=== PATIENT | female | born 1935 | race Caucasian/White ===

== ENCOUNTER 2020-10-04 16:29 | Inpatient (IN) | payer OTHER, MEDICARE ==
[~2020-10-04] VITALS: Ht 162.6 cm; Wt 80.4 kg
[~2020-10-04 16:29] MED LIST: AMLODIPINE BESY10 MG PO; DESYREL50 MG PO; LEVOTHYROXINE88 MC1 PO; NITROGLYCERIN0.4 MG SUBLING; OMEPRAZOLE 20 M20 M1 PO; OXYBUTYNIN 5 MG5 M2 PO; PRINZIDE 20-121 EACH PO; SIMVASTATIN20 MG PO
[2020-10-04 16:45] VITALS: BP 136/83
[2020-10-04 18:57] LABS: ABSOLUTE NEUTROPHILS 5.8 thou/uL (1.4-8.2); BASOPHILS 0.2 % (0.0-2.0); EOSINOPHILS 0.3 % (0.0-3.0); HEMATOCRIT 36.2 % (37.0-47.0); HEMOGLOBIN 12.5 gm/dL (12.0-15.0); LYMPHOCYTES 9.9 % (24.0-44.0); MCH 32.3 pg (26.0-34.0); MCHC 34.5 g/dL (28.0-37.0); MCV 93.8 fL (80.0-100.0); MONOCYTES 7.7 % (1.0-8.0); PLATELET COUNT 261 thou/uL (150-400); POLYS 81.9 % (36.0-66.0); RBC 3.86 mil/uL (4.20-5.00); RDW 12.8 % (10.5-14.5); WBC 7.1 thou/uL (4.0-11.0)
[2020-10-04 19:08] LABS: CALCIUM 9.7 mg/dL (8.5-10.1); CREATININE 1.2 mg/dL (0.6-1.0); POTASSIUM 3.7 mmol/L (3.5-5.1)
[2020-10-04 19:15] LABS: ALBUMIN 3.3 g/dL (3.4-5.0); DIRECT BILIRUBIN 0.2 mg/dL (<0.1-0.2); TOTAL BILIRUBIN 0.8 mg/dL (0.2-1.0); TOTAL PROTEIN 7.5 g/dL (6.4-8.2)
[2020-10-04 20:37] LABS: URINE BILIRUBIN NEGATIVE (Negative); URINE BLOOD NEGATIVE (Negative); URINE CLARITY CLEAR; URINE COLOR YELLOW; URINE GLUCOSE-RANDOM* NEGATIVE (Negative); URINE KETONES TRACE (Negative); URINE LEUKOCYTES-REFLEX 1+ (Negative); URINE NITRITE-REFLEX NEGATIVE (Negative); URINE PROTEIN (DIPSTICK) NEGATIVE (Negative); URINE UROBILINOGEN 0.2 E.U./dl (0.2-1.0)
[2020-10-04 20:45] LABS: SQUAMOUS 0-3 Few /LPF (0-3)
[2020-10-04 20:46] LABS: CASTS None Seen /LPF (None Seen); CRYSTALS None Seen /LPF (None Seen); URINE RBC None Seen /HPF (0-2); URINE WBC-REFLEX 6-15 Few /HPF (0-5)
[2020-10-05 01:11] VITALS: BP 139/62
[2020-10-05 02:25] VITALS: BP 137/100
[2020-10-05 02:27] VITALS: BP 139/62
--- NOTE | 2020-10-05 05:36 | NUR ---
PT ARRIVED FROM ER VIA CART, PLACED IN ROOM 352. ADMISSION ASSESSMENTS COMPLETED. PT ON ROOM AIR WITH O2 SAT 94% UPON ARRIVAL. DENIED ANY SOA. O2 USED IN ER REPORTEDLY FOR COMFORT ONLY. PT REPORTED POSITIVE FOR COVID APPROXIMATELY 10-11 DAYS AGO. THIS AM, PT PCR IS POSITIVE FOR COVID WELL. CONTINUE TO MONITOR.
[2020-10-05 07:18] VITALS: BP 140/72
[2020-10-05 10:25] LABS: CALCIUM 9.8 mg/dL (8.5-10.1); CREATININE 0.9 mg/dL (0.6-1.0); POTASSIUM 3.8 mmol/L (3.5-5.1)
[2020-10-05] MEDS ORDERED: PEPCID20 MG PO (12:33)
[2020-10-05] MEDS ORDERED: ZINC SULFATE 2220 MG PO (12:33)
[2020-10-05] MEDS ORDERED: LEVOFLOXACIN750 MG PO (12:33)
[2020-10-05] MEDS ORDERED: MEDROL DOSPAK21 TA1 PO (12:33)
[2020-10-05] MEDS ORDERED: TRAZODONE HCL50 MG PO (12:33)
[2020-10-05] MEDS ORDERED: LISINOPRIL20 MG PO (12:33)
[2020-10-05] MEDS ORDERED: CLONIDINE HCL0.1 MG PO (12:35)
--- NOTE | 2020-10-05 14:27 | NUR ---
INITIAL ASSESSMENT/DISCHARGE NOTE: AXEL reviewed chart and spoke with nursing and attending physician. Pt was admitted from home due to pneumonia. Pt placed in Enhanced Isolation due to COVID-19. Pt is afebrile and not requiring O2. Pt is on IV abx and IV steroids. AXEL spoke with pt's dtr, Vanessa, via phone. Vanessa states that she will be coming to pickle solution maker pt today and taking her home. AXEL explained that discharge orders have not been written. Vanessa requesting to speak with attending physician. AXEL provided Vanessa's contact info to attending physician. Pt to discharge home this afternoon. Vanessa will pickle solution maker pt between [id number] today. AXEL updated pt's nurse. Pt lives at home with Vanessa, who is a RN. Pt's dtr, Chika, is an RN at [employer] [employer] [employer]. AXEL followed with Vanessa to confirm discharge planned. No SW needs identified at this time, but is available to assist should needs arise.
[2020-10-05 15:03] VITALS: BP 108/51
[2020-10-05 15:38] VITALS: BP 108/51
--- NOTE | 2020-10-06 09:15 | HC ---
[facility] [place] [address] CONSULTATION Name: MAURICE GUILLEN Room #: 352-P [facility] IN M.R.#: [id number] Admission: 10/04/20 Attend Phys: August Padron MD Discharge: 10/05/20 Date of : 31 Report #: [id number] THIS REPORT FOR: cc: Adeline Valdez MD, Douglas B. MD Barry,Jerry Nevarez MD ~ DATE OF SERVICE: 10/05/2020 INFECTIOUS DISEASE CONSULTATION ATTENDING PHYSICIAN: Dr. Padron. REASON FOR EVALUATION: COVID-19 infection. HISTORY OF PRESENT ILLNESS: Chart reviewed, patient examined. This is an 84-year-old woman with fairly extensive medical history, has known hypertension, hypothyroidism, who is generally independent. She apparently was tested positive for COVID-19 approximately 10 days prior to the admission yesterday. She had not been on therapy. She noted some increased dyspnea with a nonproductive cough and fatigue, although at present, she denies those. She is maintained on supplemental ambient air. On questioning, denies any particular pulmonary or gastrointestinal related complaints that she just wants to go home. As per the evaluation, initially chest x-ray was performed, which showed moderate bilateral pulmonary infiltrates. She was found to have hyponatremia with a sodium of 123, repeat is up to 127. Lactic acid 1.0. Procalcitonin less than 0.05. Urinalysis did show 6-15 white cells. Influenza antigen was negative. Sed rate was noted to be elevated at 104. Blood cultures are sterile thus far. She was initiated on empiric therapy with azithromycin, ceftriaxone and has received some methylprednisolone as well. ALLERGIES: None known. MEDICATIONS: Currently include hydrochlorothiazide, lisinopril, amlodipine, atorvastatin, azithromycin, ascorbic acid, famotidine, levothyroxine, methylprednisolone, zinc sulfate, trazodone, enoxaparin, and ceftriaxone. PAST MEDICAL HISTORY: Includes hypertension, hypothyroidism, arthritis, reflux, has had esophageal strictures with dilatation. SOCIAL HISTORY: Former smoker, occasional ethanol. Actually 1 daily. No illicit drug use. FAMILY HISTORY: Noncontributory. REVIEW OF SYSTEMS: Otherwise, unremarkable 10-point review of systems. [address] [address] CONSULTATION Name: MAURICE GUILLEN Room #: [address] [place] [address] [place] .R.#: [id number] Admission: 10/04/20 Attend Phys: August Padron MD Discharge: 10/05/20 Date of : 31 Report #: [id number] PHYSICAL EXAMINATION: GENERAL: She is sitting in the chair. She is alert, cooperative, slightly distressed, appears reasonably well nourished. VITAL SIGNS: Temperature 97.7, pulse 69, respirations 16, blood pressure is 140/72. SKIN: Warm, dry, no rashes. HEENT: Otherwise unremarkable. Normocephalic. Extraocular muscles intact. NECK: Supple. LUNGS: Diminished breath sounds. Few scattered crackles at the bases. HEART: Regular. I do not appreciate a murmur. ABDOMEN: Soft, nontender, nondistended. EXTREMITIES: No cyanosis. GENITOURINARY AND RECTAL: Deferred. LABORATORY DATA: Most recent electrolytes, sodium 127, potassium 3.8, chloride 94, bicarbonate is 22, anion gap of 11, BUN and creatinine 12 and 0.9, glucose of 146. Blood cultures sterile thus far. Coronavirus PCR was positive. The antigen was negative. Sed rate of 104. Ferritin 391. Procalcitonin less than 0.05. CBC: White count of 7.1, H and H 12.5 and 36.2, platelets of 261. ASSESSMENT: COVID-19 infection with apparent pneumonitis. Secondly appears to have a urinary tract infection and may well be as a complication as well and electrolyte abnormalities with sodium 123 and certainly raises a concern, maybe more of a chronic issue given her adaptation and finally elevated sed rate, again may have an occult process that has not been defined thus far. We will discuss with the primary physician. We will dose with ivermectin x 1 as well as adjust antibacterial therapy with Levaquin. She may well be outside the window for remdesivir at this point. She has several daughters that are nurses, may be able to be managed satisfactorily at home. <ELECTRONICALLY SIGNED> By: Jerry Kearney MD 10/06/20 0915 [id number] Jerry Kearney MD /nt
== END 2020-10-05 16:30 | disposition home or self-care (01) | DRG 177 ==
LOC: ER 16:29 → 3W 20:33 → EROBS 20:33 → 3W 10-05 02:05
PROVIDERS: Hospitalist; Nurse Practitioner; ADMIT Hospitalist; ATTEND Hospitalist
DX: U07.1 COVID-19 (principal); J96.01 Acute respiratory failure with hypoxia; J12.89 Other viral pneumonia; N39.0 Urinary tract infection, site not specified; E87.1 Hypo-osmolality and hyponatremia; I10 Essential (primary) hypertension; E03.9 Hypothyroidism, unspecified; K21.9 Gastro-esophageal reflux disease without esophagitis; E78.5 Hyperlipidemia, unspecified; M19.90 Unspecified osteoarthritis, unspecified site; E86.0 Dehydration; Z87.891 Personal history of nicotine dependence